=== PATIENT | male | born 1960 ===

== ENCOUNTER 2017-02-13 08:00 | Outpatient (CLI) | payer OTHER | END 2017-02-13 08:01 | disposition home or self-care (01) | LOC: BICMRI 08:00 | PROVIDERS: ATTEND Family Medicine | DX: S46.911A Strain of unspecified muscle, fascia and tendon at shoulder and upper arm level, right arm, initial encounter (principal); S86.911A Strain of unspecified muscle(s) and tendon(s) at lower leg level, right leg, initial encounter; M19.011 Primary osteoarthritis, right shoulder; M85.611 Other cyst of bone, right shoulder ==